=== PATIENT | female | born 1970 | race Caucasian/White ===

== ENCOUNTER 2017-02-20 21:55 | Emergency (ER) | payer BC ==
[~2017-02-20] VITALS: Ht 165.1 cm; Wt 65.8 kg
[~2017-02-20 21:55] MED LIST: ACEBUTCAFT PO; AMOX500 PO; Ambien5 MG PO; BUPR100; BUPR150T2; BUPR150T2 PO; CHLORHEXIDINE; CLON1; CODACE30 PO; Cyclobenzaprine5 MG PO; DESI10; DESI50; DESV50 PO; DHE; DHEA PO; DOCU100 PO; ESTR2 PO; FROV2.5; HYDACE5 PO; HYDMOR2 PO; HYDR1TAB94 PO; IBUP800 PO; KETO10; KETO30I; KETO30I IM; LEVFLO500; LEVFLO500 PO; LEVSOD88 PO; LITH300C; Lasix20 MG PO; MAGCIT300 PO; MEDR10 PO; METR500 PO; MINO50; MULVITA; NAPR250 PO; NAPR550 PO; Norco 5-325 Ta1 EACH PO; ONDA4; ONDA4ODT MM; ONDA8 PO; ONDA8ODT MM; OXYACE5T; OXYACE5T PO; OXYC5 PO; PHENERGAN; PRED20 PO; PREG50 PO; PROC25S PR; PROM25; PROM25 PO; PROM50S PR; QUDEXY XR200 MG PO; QUET300; RXLORA1 PO; RXOXYACE PO; SUMA25; TIZA4; TOPI100; TOPI25; TOPI50 PO; TORADOL; TRAM50; VIIBRYD40 MG PO; Zofran8 MG PO; [UNRECOGNIZED DRUG - OTHER]; [UNRECOGNIZED DRUG - OTHER]
[2017-02-20] MEDS ORDERED: OSEL75CA PO (23:46)
[2017-02-21 03:43] LABS: Alanine Aminotransfer (ALT/SGP 20 U/L (12-78); Alk Phos 51 U/L (50-136); Anion Gap 6 mmol/L (6-16); Aspartate Aminotrans (AST/SGOT 14 U/L (12-37); Bilirubin, Total 0.3 mg/dL (0.1-1.0); Blood Urea Nitrogen 19 mg/dL (8-24); CO2, Blood 22 mmol/L (21-32); Calcium, Blood 8.1 mg/dL (8.5-10.1); Chloride, Blood 116 mmol/L (98-108); Creatinine, Blood 0.86 mg/dL (0.40-1.00); Glomerular Filtration Rate >60 (60-); Glucose, Blood 89 mg/dL (70-99); Sodium, Blood 144 mmol/L (136-145)
[2017-02-21] MEDS ORDERED: Zofran Odt4 MG PO (04:13)
[2017-02-21 04:14] LABS: Source, Urine Clean Catch
[2017-02-21 04:15] LABS: Bilirubin, Urine Neg (Neg); Blood, Urine Neg (Neg); Glucose Qualitative, Urine Neg (Neg); Ketones, Urine Neg (Neg); Leukocyte Esterase, Urine Neg (Neg); Nitrite, Urine Neg (Neg); Protein, Urine Neg (Neg); Specific Gravity, Urine 1.025 (1.003-1.022); Urobilinogen, Urine NORM (Normal)
[2017-02-21 04:18] LABS: Appearance, Urine Clear (Clear); Color, Urine Yellow (P-Yellow)
== END 2017-02-21 04:54 | disposition home or self-care (01) ==
LOC: ER 21:55
PROVIDERS: Emergency Medicine
DX: J11.1 Influenza due to unidentified influenza virus with other respiratory manifestations (principal); E86.0 Dehydration; E03.9 Hypothyroidism, unspecified; Z88.1 Allergy status to other antibiotic agents; Z88.5 Allergy status to narcotic agent; Z88.7 Allergy status to serum and vaccine; Z79.899 Other long term (current) drug therapy; Z90.710 Acquired absence of both cervix and uterus; Z90.89 Acquired absence of other organs
CPT/HCPCS: 71046; 80053; 81003; 96361; 96374; 96375; 99284; J2405; J2550; J7030

== ENCOUNTER 2017-04-19 18:04 | Emergency (ER) | payer BC ==
[~2017-04-19] VITALS: Ht 165.1 cm; Wt 65.8 kg
[~2017-04-19 18:04] MED LIST changes: +OSEL75CA PO; +Zofran Odt4 MG PO
[2017-04-19] MEDS ORDERED: BUPR150ER PO (19:09)
[2017-04-19 19:50] LABS: BASOPHILS ABSOLUTE AUTO 0.04 K/mm3 (0.00-0.23); BASOPHILS PERCENT AUTO 1 % (0-2); EOSINOPHILS PERCENT AUTO 2 % (0-6); Hematocrit 38.4 % (33.0-51.0); Hemoglobin 12.6 g/dL (11.5-16.0); IMMATURE GRAN ABSOLUTE AUTO 0.01 K/mm3 (0.00-0.10); IMMATURE GRAN PERCENT AUTO 0 % (0-1); LYMPHOCYTES ABSOLUTE AUTO 1.92 K/mm3 (0.84-5.20); LYMPHOCYTES PERCENT AUTO 42 % (21-46); MONOCYTES ABSOLUTE AUTO 0.49 K/mm3 (0.16-1.47); MONOCYTES PERCENT AUTO 11 % (4-13); Mean Corpuscular HGB 29.4 pg (26.0-34.0); Mean Corpuscular HGB Conc 32.8 g/dL (31.5-36.5); Mean Corpuscular Volume 90 fL (80-100); Mean Platelet Volume 9.9 fL (9.1-12.4); NEUTROPHILS ABSOLUTE AUTO 2.06 K/mm3 (1.96-9.15); NEUTROPHILS PERCENT AUTO 45 % (41-73); Platelet Count 273 K/mm3 (150-400); RDW Coefficient Variation 12.3 % (11.7-14.2); RDW Standard Deviation 39.8 fL (35.1-46.3); Red Blood Cell Count 4.29 M/mm3 (3.80-5.20); White Blood Cell Count 4.62 K/mm3 (4.00-11.30)
[2017-04-19 20:12] LABS: Alanine Aminotransfer (ALT/SGP 22 U/L (12-78); Albumin, Blood 3.9 g/dL (3.4-5.0); Albumin/Globulin Ratio 1.3 (0.8-1.8); Alk Phos 47 U/L (50-136); Anion Gap 6 mmol/L (6-16); Aspartate Aminotrans (AST/SGOT 24 U/L (12-37); Bilirubin, Total 0.2 mg/dL (0.1-1.0); Blood Urea Nitrogen 18 mg/dL (8-24); Bun/Creatinine Ratio 20.3 (12.0-20.0); CO2, Blood 26 mmol/L (21-32); CPK Creatine Kinase 149 U/L (26-193); Calcium, Blood 8.7 mg/dL (8.5-10.1); Chloride, Blood 110 mmol/L (98-108); Creatine Kinase MB 2.1 ng/mL (0.0-3.6); Creatine Kinase MB Index 1.4 (0.0-4.0); Creatinine, Blood 0.89 mg/dL (0.40-1.00); Globulin, Blood 3.1 g/dL (2.2-4.0); Glomerular Filtration Rate >60 (60-); Glucose, Blood 88 mg/dL (70-99); Magnesium, Blood 2.3 mg/dL (1.6-2.4); Phosphorus, Blood 2.2 mg/dL (2.5-4.9); Potassium, Blood 3.6 mmol/L (3.5-5.5); Sodium, Blood 142 mmol/L (136-145)
== END 2017-04-19 23:32 | disposition home or self-care (01) ==
LOC: ER 18:04
PROVIDERS: Emergency Medicine
DX: F41.9 Anxiety disorder, unspecified (principal); F45.0 Somatization disorder; G43.909 Migraine, unspecified, not intractable, without status migrainosus; Z88.5 Allergy status to narcotic agent; Z88.7 Allergy status to serum and vaccine; Z79.899 Other long term (current) drug therapy
CPT/HCPCS: 80053; 82550; 82553; 83735; 84100; 85025; 93005; 93010; 96374; 96375; 99283; J1885; J2060

== ENCOUNTER → 2017-06-01 | Outpatient (CLI) | payer BC ==
[~2017-06-01] MED LIST changes: +BUPR150ER PO
[2017-06-03 19:00] LABS: HCV Non Reactive (NR)
== END ==
LOC: LAB EV 18:52 → LAB SHORT 18:52
PROVIDERS: Physician Assistant Medical
DX: N30.00 Acute cystitis without hematuria (principal); Z72.51 High risk heterosexual behavior
CPT/HCPCS: 80074; 86592; 87070; 87077; 87086; 87186; 87205; 87389

== ENCOUNTER 2019-01-05 13:49 | Day surgery (SDC) | payer BC ==
[~2019-01-05] VITALS: Ht 165.1 cm; Wt 64.2 kg
[~2019-01-05 13:49] MED LIST changes: +ALLEGRA ALLERG180 MG PO; +BACL10 PO; +DEXA4 PO; +HYDMOR4 PO; +Imitrex6 MG/0.52 SC; +KETOROLAC30 MG/1 ML IM; +TOPI100 PO
--- NOTE | 2019-01-05 14:43 | NUR ---
01/05/19 1443 Yaneth Harris 1440 77, 100%, 116/65
== END 2019-01-05 15:05 | disposition home or self-care (01) ==
LOC: ORSCSDS 13:49
PROVIDERS: Anesthesiology
PROC: 3E0R33Z Introduction of Anti-inflammatory into Spinal Canal, Percutaneous Approach (ICD-10-PCS; principal; 2019-01-05 15:45)
DX: M54.12 Radiculopathy, cervical region (principal); Z79.899 Other long term (current) drug therapy
CPT/HCPCS: J1040; J2250; J3010

== ENCOUNTER 2019-03-25 08:00 | Day surgery (SDC) | payer BC, OTHER ==
[~2019-03-25] VITALS: Ht 165.1 cm; Wt 62.4 kg
== END 2019-03-25 09:32 | disposition home or self-care (01) ==
LOC: ORSCSDS 08:00
PROVIDERS: Anesthesiology
PROC: 3E0S3GC Introduction of Other Therapeutic Substance into Epidural Space, Percutaneous Approach (ICD-10-PCS; principal; 2019-03-25 08:45)
DX: G97.1 Other reaction to spinal and lumbar puncture (principal); Z79.899 Other long term (current) drug therapy
CPT/HCPCS: J1040; J2250; J2405; J3010; J7120

== ENCOUNTER 2019-03-28 13:54 | Day surgery (SDC) | payer BC, OTHER ==
--- NOTE | 2019-03-28 14:16 | NUR ---
PT BROUGHT BACK FROM WAITING AREA. PT IS ALERT AND ORIENTED ON ADMISSION. DENIES AND NUMBNESS OR TINGLING IN EXTREMEITES. NUMBER ONE C/O IS 9/10 HEADACHE. TOOK NORCO AND REGLAN AT NOON TODAY.
--- NOTE | 2019-03-28 16:52 | NUR ---
Patient up to Ambulate independently. Gait steady. Discharge instructions reviewed with patient. Patient verbalizes understanding. Copy given to patient to take home.
== END 2019-03-28 23:09 | disposition home or self-care (01) ==
LOC: ORD 13:54 → ORSCMMR 13:54 → ORD 23:09
PROVIDERS: Anesthesiology
PROC: 3E0S3GC Introduction of Other Therapeutic Substance into Epidural Space, Percutaneous Approach (ICD-10-PCS; principal; 2019-03-28 14:00)
DX: G97.1 Other reaction to spinal and lumbar puncture (principal); Z79.899 Other long term (current) drug therapy
CPT/HCPCS: J2250; J3010; J7120

== ENCOUNTER 2019-10-21 12:50 | Inpatient (IN) | payer BC, OTHER ==
[~2019-10-21] VITALS: Ht 165.1 cm; Wt 61.2 kg
[~2019-10-21 12:50] MED LIST changes: +PROG100; +T-3
--- NOTE | 2019-10-21 13:50 | NUR ---
10/21/19 1350 GIANCARLO SIMS PATIENT IS DIFFICULT IV START. ELIZABET RAY , ELIZABET MONDRAGON AND LUCAS SHARIF WITH MULTIPLE ATTEMPTS ON BOTH ARMS AND RIGHT FOOT PROVED UNSUCCESSFUL. tOTAL OF AT LEAST 6 ATTEMPTS WERE MADE PRIOR TO CONSULTING DR. APODACA.
--- NOTE | 2019-10-21 15:43 | NUR ---
10/21/19 1543 Candy Verma 2 1/2 CC OF PT'S AUTOLOGOUS BLOOD VIA EPIDURAL BY DR APODACA.
--- NOTE | 2019-10-21 17:50 | NUR ---
10/21/19 1750 Shasha Hernandez ASSUMED CARE OF PATIENT APPROX 1645. PT RESTING WITH EMESIS BOWL BESIDE HER, LIGHTS DIMMED. PT STS PAIN 10/[address] APODACA HAS DECIDED TO HAVE PT ADMITTED TO [facility]. NURSING PLATE COLORER CONTACTED. AWAITING CALL FROM HOSPITALIST FOR ORDERS. PT REQUESTS FAMILY TO BE CONTACTED. SIGNIFICANT OTHER CALLED BY THIS RN, UPDATED WITH SITUATION. S.O. TO ORSC, SITTING WITH PATIENT. PT DENIES NEEDS AT THIS TIME.
--- NOTE | 2019-10-22 04:10 | NUR ---
CALL PLACED TO HOSPITALIST REGARDING LOW BP AND HR. PT ASYMPTOMATIC AT THIS TIME. FLUIDS INFUSING AT 150CC. WILL WAIT FOR CALL BACK.
--- NOTE | 2019-10-22 04:31 | NUR ---
SHIFT SUMMARY: PT ARRIVED TO UNIT LAST NIGHT AT APPROX 2020 S/P ATTEMPTED BLOOD PATCH. BANDAID TO BACK C/D/I WITHOUT SIGNS OF BLEEDING. HEADACHE BEING MANAGED WITH LIQ OXY AND TORADOL PER EMAR. MEDICATED WITH COMPAZINE AND ZOFRAN FOR COMPLAINTS OF NAUSEA. NO EMESIS. PT OUT OF BED ONCE TO BATHROOM. VOID X1 OF 200CC. URINE DARK YELLOW. NEW POWERGLIDE PLACED TO DANIEL. FLUIDS INFUSING AT 150CC/HR. BRANDON SMALL AMOUNT OF WATER.
--- NOTE | 2019-10-22 04:43 | NUR ---
ATTEMPTED TO CALL HOSPITALIST AT THIS TIME. WAITING FOR CALL BACK.
--- NOTE | 2019-10-22 05:12 | NUR ---
NEW ORDER FOR 500CC BOLUS OF NS.
[2019-10-22 05:45] LABS: BASOPHILS ABSOLUTE AUTO 0.03 K/mm3 (0.00-0.23); BASOPHILS PERCENT AUTO 1 % (0-2); EOSINOPHILS ABSOLUTE AUTO 0.15 K/mm3 (0.00-0.68); EOSINOPHILS PERCENT AUTO 3 % (0-6); Hemoglobin 12.9 g/dL (11.5-16.0); IMMATURE GRAN ABSOLUTE AUTO 0.02 K/mm3 (0.00-0.10); IMMATURE GRAN PERCENT AUTO 0 % (0-1); LYMPHOCYTES ABSOLUTE AUTO 1.82 K/mm3 (0.84-5.20); LYMPHOCYTES PERCENT AUTO 34 % (21-46); MONOCYTES ABSOLUTE AUTO 0.42 K/mm3 (0.16-1.47); MONOCYTES PERCENT AUTO 8 % (4-13); Mean Corpuscular HGB 30.3 pg (26.0-34.0); Mean Corpuscular HGB Conc 32.3 g/dL (31.5-36.5); Mean Corpuscular Volume 94 fL (80-100); Mean Platelet Volume 9.5 fL (9.1-12.4); NEUTROPHILS ABSOLUTE AUTO 2.96 K/mm3 (1.96-9.15); NEUTROPHILS PERCENT AUTO 55 % (41-73); Platelet Count 293 K/mm3 (150-400); RDW Coefficient Variation 11.3 % (11.7-14.2); RDW Standard Deviation 38.6 fL (35.1-46.3); Red Blood Cell Count 4.26 M/mm3 (3.80-5.20)
[2019-10-22 06:03] LABS: Bun/Creatinine Ratio 15.2 (12.0-20.0); Calcium, Blood 8.3 mg/dL (8.5-10.1); Creatinine, Blood 1.05 mg/dL (0.40-1.00)
--- NOTE | 2019-10-22 08:31 | NUR ---
SPOKE WITH DR. NAVA AT THIS TIME CONCERNING PT'S HYPOTENSION. NO NEW ORDERS. WILL CTM PT STATUS.
--- NOTE | 2019-10-22 11:31 | NUR ---
10/22/19 1131 Quiana Shrestha BLOOD PATCH DONE WITH POWER GLIDE AT PATIENT BEDSIDE WITH DR. MARINO. NO SEDATION. PT TOLERATED WELL
--- NOTE | 2019-10-22 13:51 | NUR ---
PT UNDERWENT BLOOD PATCH PROCEDURE AT ABOUT [address] MARINO AT PT BEDSIDE
--- NOTE | 2019-10-22 18:25 | NUR ---
SUMMARY: NO ACUTE CHANGE TODAY. PT TOLERATED BLOOD PATCH PROCEEDURE WELL. VSS. SITE WNL, NO LEAKING NOTED, PT DENIES DIZZINESS. PT CONTINUES TO REPORT CONSTANT HEADACHE AT REST. PAIN IS GREATER WHEN SITTING UP, MOVING TOO MUCH OR AMBULATING. PT LAID FLAT FOR MEALS AND WHEN NOT UP TO USE BATHROOM. SPOKE WITH DR. MARINO AT THIS TIME PT'S HEADACHE SEEMS TO HAVE STAYED THE SAME FOLLOWING BLOOD PATCH. NO NEW ORDERS. PLAN IS TO MANAGE PAIN AND ALLOW PT TO REST. WILL REPORT TO NOC RN
--- NOTE | 2019-10-23 03:24 | NUR ---
PT AWOKE W/BLOODY NOSE. PT APPLIED PRESSURE, WAS ABLE TO STOP BLEEDING. PT CONT TO C/O HEADACHE 09/25. PT REQ IV PAIN AND NAUSEA MEDS. PT REMOVED SCOPOLAMINE PATCH. HUMIDIFIED AIR PROVIDED VIA VA.
--- NOTE | 2019-10-23 06:29 | NUR ---
PT CONT TO C/O SEVERE HEADACHES. PT RATES PAIN 8/10 AFTER ACTIVITY, 4/10 AT REST. PT REQUIRING BOTH IV AND PO PAIN MEDS, ICE PACKS PROVIDED W/LITTLE RELIEF. NO DRNG NOTED FROM LUMBAR SITE, SMALL CLOT VISIBILE. PT HAD 1 EPISODE OF NAUSEA, NO EMESIS. PT WOKE W/NOSEBLEED, WAS ABLE TO STOP BLEED W/PRESSURE. PT REP LESS IRRITATION W/HUMIDIFIED AIR. BP REMAINED HYPO, PT DENIED DIZZINESS WHEN UP. IVF CONT PER ORDERS. IS VOIDING CLEAR YELLOW URINE.
--- NOTE | 2019-10-23 15:10 | NUR ---
SUMMARY: NO ACUTE CHANGE TODAY. PT CONTINUES TO HAVE SPINAL HEADACHE. REPORTS AFTER GIVEN COMPAZINE AND DILAUDID ABLE TO SLEEP AND PAIN DECREASED TO 3/10. PT REPORTS PAIN STILL INCREASES TO 8/10 WITH MUCH MOVEMENT OR STANDING. VSS,A/O. PLAN IS TO DC HOME TOMORROW, THIS DICISION MADE WITH DR. NAVA. WILL PASS REPORT TO NOC RN
--- NOTE | 2019-10-24 04:29 | NUR ---
SHIFT SUMMARY LYING IN LOW FOWLERS, HAS RESTED WELL. RIGHT UPPER ARM POWERGLIDE IS PATENT, FLUSHING WITH EASE WHILE INFUSING LR AT 75ML/HR. DENIES PAIN, DISCOMFORT, OR FURTHER NEEDS AT THIS TIME. WAS MEDICATED FOR PAIN AND N/V X1 AFTER AMBULATING TO BATHROOM, TOLERATED WELL. SAFETY MEAURES IN PLACE. WILL CONTINUE TO MONITOR AND GIVE HAND OFF TO ONCOMING SHIFT USING SBAR.
--- NOTE | 2019-10-24 16:38 | NUR ---
SHIFT SUMMARY PT A&OX4, VSS, RA, BEDREST/LYING FLAT, AMBULATES INDEPENDENT TO BRP, DENIES DIZZINESS, VOIDING WELL. PAIN MANAGED WITH IV DILAUDID PRN, AND SCHEDULED TORADOL. NAUSEA MANAGED WITH IV SCHEDULED REGLAN, COMPAZINE AND ZOFRAN PRN; DENIES VOMITING. BRANDON LOW PO INTAKE. POWERGLIDE DANIEL; IVF 75 MLS/HR. WILL REPORT TO ONCOMING NOC RN.
--- NOTE | 2019-10-25 06:10 | NUR ---
SHIFT SUMMARY: ZEENAT IS A&OX4. SHE REPORTS THAT HER BLOOD PRESSURE RUNS IN THE LOW RANGE AT HER BASELINE. BP TAKEN BEFORE AND AFTER ADMINISTRATION OF DILAUDID STABLE. SHE DENIES ANY DIZZINESS, LIGHTHEADEDNESS, OR PRE-SYNCOPAL SYMPTOMS. SHE REPORTS THAT 1 MG OF DILAUDID HAS BEEN HELPING TO KEEP HER PAIN UNDER CONTROL. SHE STATES THAT STANDING AND WALKING INCREASE THE PAIN FROM THE HEADACHE AND THE NAUSEA. SHE REPORTS PASSING A SIGNIFICANT AMOUNT OF GAS AND SEVERAL BOWEL MOVEMENTS DURING THE NIGHT. SHE USES HER CALL LIGHT APPROPRIATELY. SHE IS INDEPENDENT TO THE BATHROOM. SHE IS LYING IN BED WITH HER CALL LIGHT IN REACH. WILL REPORT TO DAY SHIFT RN.
--- NOTE | 2019-10-25 18:42 | NUR ---
SHIFT SUMMARY PT A&OX4, VSS, LYING FLAT, INDEPENDENT TO BRP, VOIDING WELL, BRANDON PO - INTAKE HAS IMPROVED. PAIN MANAGED WITH 1 MG DILAUDID & TORADOL. NAUSEA TX'D WITH 5 MG REGLAN AND ZOFRAN PRN, DENIES VOMITING. POWERGLIDE DANIEL, IVF @ 75 MLS/HR. WILL REPORT TO ONCOMING NOC RN.
--- NOTE | 2019-10-26 04:43 | NUR ---
SHIFT SUMMARY: NO SIGNIFICANT CHANGES THIS SHIFT. PT A&OP X4. VS WNL. PT CONTINUES TO HAVE A HEADACHE. PAIN BEING MANAGED WITH 1MG DILAUDID AND TORADOL PER EMAR. NAUSEATED ONCE THIS SHIFT AND GIVEN SCHEDULED REGLAN. NO EMESIS. LYING SUPINE MOST OF SHIFT. AMBULATING TO BATHROOM INDEPENDENTLY AND VOIDING WELL. IVF INFUSING AT 75 PER ORDERS. PLAN FOR ADDITIONAL LABS AND PAIN MANAGEMENT.
[2019-10-26] MEDS ORDERED: FIORINAL 50-321 EACH PO (13:58)
[2019-10-26] MEDS ORDERED: DOCU100 PO (13:58)
[2019-10-26] MEDS ORDERED: LIOT5 PO (13:59)
[2019-10-26] MEDS ORDERED: ONDA4ODT MM (14:00)
[2019-10-26] MEDS ORDERED: SENN187 PO (14:00)
[2019-10-26] MEDS ORDERED: HYDMOR2 PO (14:02)
[2019-10-26] MEDS ORDERED: METO10 PO (14:04)
== END 2019-10-26 15:15 | disposition home or self-care (01) | DRG 103 ==
LOC: ORSCSDS 12:50 → SURS 19:30 → MEDS 19:30 → ORSCSDS 19:30 → SURS 20:15
PROVIDERS: Anesthesiology; Nurse Practitioner Acute Care; ADMIT Internal Medicine
PROC: 3E0R3GC Introduction of Other Therapeutic Substance into Spinal Canal, Percutaneous Approach (ICD-10-PCS; principal; 2019-10-22 11:00)
DX: G97.1 Other reaction to spinal and lumbar puncture (principal); I95.0 Idiopathic hypotension; E03.9 Hypothyroidism, unspecified; M54.12 Radiculopathy, cervical region; F32.9 Major depressive disorder, single episode, unspecified
CPT/HCPCS: 71046; 80048; 85025; 85651; 96361; 96375; 96376; A9270; C1751; G0378; J0780; J1170; J1885; J2001; J2405; J2765; J2930; J7040; J7120

== ENCOUNTER 2021-05-01 13:14 | Day surgery (SDC) | payer BC ==
[~2021-05-01] VITALS: Ht 165.1 cm; Wt 68.1 kg
[~2021-05-01 13:14] MED LIST changes: +FIORINAL 50-321 EACH PO; +LIOT5 PO; +METO10 PO; -PROG100; +PROG100 PO; +SENN187 PO
[2021-05-01] MEDS ORDERED: LEVSOD100 PO (13:34)
--- NOTE | 2021-05-01 13:52 | NUR ---
05/01/21 1352 Noemí Shields NEGATIVE
--- NOTE | 2021-05-01 14:51 | NUR ---
05/01/21 1451 Mk Lou [address]MC[address]'S ISOVUE 200M INJ INTO OPSITE AT [address] MARINO.
== END 2021-05-01 15:23 | disposition home or self-care (01) ==
LOC: ORSCSDS 13:14
PROVIDERS: Anesthesiology
PROC: 3E0R33Z Introduction of Anti-inflammatory into Spinal Canal, Percutaneous Approach (ICD-10-PCS; principal; 2021-05-01 15:00)
DX: M50.121 Cervical disc disorder at C4-C5 level with radiculopathy (principal); M79.18 Myalgia, other site; K21.9 Gastro-esophageal reflux disease without esophagitis; R11.0 Nausea; Z79.899 Other long term (current) drug therapy
CPT/HCPCS: J1040; J2250; J3010

== ENCOUNTER 2021-10-25 07:44 | Day surgery (SDC) | payer OTHER, BC ==
[~2021-10-25] VITALS: Ht 165.1 cm; Wt 68.6 kg
[~2021-10-25 07:44] MED LIST changes: +LEVSOD100 PO
[2021-10-25] MEDS ORDERED: ALDACTONE100 MG PO (08:35)
[2021-10-25] MEDS ORDERED: DOXY100 PO (08:36)
[2021-10-25] MEDS ORDERED: MELO7.5 PO (08:38)
--- NOTE | 2021-10-25 09:38 | NUR ---
10/25/21 0938 Jasbir Nur MIDAZOLAM AND FENTENAYL GIVEN PER DR. MARINO INSTRUCTIONS.
== END 2021-10-25 10:05 | disposition home or self-care (01) ==
LOC: ORSCSDS 07:44
PROVIDERS: Anesthesiology
PROC: 3E0R33Z Introduction of Anti-inflammatory into Spinal Canal, Percutaneous Approach (ICD-10-PCS; principal; 2021-10-25 09:15)
DX: M96.1 Postlaminectomy syndrome, not elsewhere classified (principal); M54.12 Radiculopathy, cervical region; E03.9 Hypothyroidism, unspecified; K21.9 Gastro-esophageal reflux disease without esophagitis; Z79.899 Other long term (current) drug therapy
CPT/HCPCS: J1040; J2250; J3010; J7120

== ENCOUNTER 2022-07-15 11:49 | Day surgery (SDC) | payer OTHER, BC ==
[~2022-07-15] VITALS: Ht 165.1 cm; Wt 68.7 kg
[~2022-07-15 11:49] MED LIST changes: +ALDACTONE100 MG PO; +DOXY100 PO; +MELO7.5 PO
[2022-07-15] MEDS ORDERED: PREGABALIN50 MG PO (12:08)
--- NOTE | 2022-07-15 12:58 | NUR ---
07/15/22 1258 Paula Talbot 75MCG OF FENTANYL AND 3 OF VERSED WAS GIVEN TO PT WHILE VITALS WERE BEING MONITORED PER DR. MARINO ORDERS. PT WAS IN A CHAIR AT FOOT OF BED WITH FOREHEAD RESTING ON PILLOWS.
[2022-07-15 13:07] VITALS: BP 94/65
--- NOTE | 2022-07-15 13:23 | NUR ---
07/15/22 1323 MAO SINGH IV OUT AT 1324, SITE WNL, CANULA INTACT. PT TOLERATED PROCEDURE WELL.
== END 2022-07-15 13:30 | disposition home or self-care (01) ==
LOC: ORSCSDS 11:49
PROVIDERS: Anesthesiology
PROC: 3E0R3BZ Introduction of Anesthetic Agent into Spinal Canal, Percutaneous Approach (ICD-10-PCS; principal; 2022-07-15 12:30)
PROC: 3E0R33Z Introduction of Anti-inflammatory into Spinal Canal, Percutaneous Approach (ICD-10-PCS; principal; 2022-07-15 12:30)
DX: M54.12 Radiculopathy, cervical region (principal); E03.9 Hypothyroidism, unspecified; K21.9 Gastro-esophageal reflux disease without esophagitis; Z79.899 Other long term (current) drug therapy
CPT/HCPCS: J1040; J1885; J2250; J3010

== ENCOUNTER 2023-12-16 06:36 | Emergency (ER) | payer BC ==
[~2023-12-16] VITALS: Ht 165.1 cm; Wt 63.5 kg
[~2023-12-16 06:36] MED LIST changes: +PREGABALIN50 MG PO
[2023-12-16 07:04] VITALS: BP 125/75
[2023-12-16] MEDS ORDERED: Ketorolac Tromethamine 30mg Vial IV ONE (07:20)
[2023-12-16] MEDS ORDERED: NS 1,000 ML IV SCH (07:20)
[2023-12-16] MEDS ORDERED: Ondansetron HCl 2 MG / ML 2ML Vial IV ONE (07:20)
[2023-12-16 08:07] LABS: BASOPHILS ABSOLUTE AUTO 0.06 K/mm3 (0.00-0.23); BASOPHILS PERCENT AUTO 1 % (0-2); EOSINOPHILS PERCENT AUTO 1 % (0-6); Hematocrit 47.5 % (33.0-51.0); Hemoglobin 15.8 g/dL (11.5-16.0); IMMATURE GRAN ABSOLUTE AUTO 0.03 K/mm3 (0.00-0.10); IMMATURE GRAN PERCENT AUTO 0 % (0-1); LYMPHOCYTES ABSOLUTE AUTO 1.53 K/mm3 (0.84-5.20); LYMPHOCYTES PERCENT AUTO 14 % (21-46); MONOCYTES ABSOLUTE AUTO 0.46 K/mm3 (0.16-1.47); MONOCYTES PERCENT AUTO 4 % (4-13); Mean Corpuscular HGB 30.9 pg (26.0-34.0); Mean Corpuscular HGB Conc 33.3 g/dL (31.5-36.5); Mean Corpuscular Volume 93 fL (80-100); Mean Platelet Volume 9.8 fL (9.1-12.4); NEUTROPHILS ABSOLUTE AUTO 8.87 K/mm3 (1.96-9.15); NEUTROPHILS PERCENT AUTO 80 % (41-73); Platelet Count 362 K/mm3 (150-400); RDW Coefficient Variation 12.1 % (11.7-14.2); RDW Standard Deviation 41.4 fL (35.1-46.3); Red Blood Cell Count 5.11 M/mm3 (3.80-5.20); White Blood Cell Count 11.05 K/mm3 (4.00-11.30)
[2023-12-16 08:31] LABS: Albumin, Blood 4.3 g/dL (3.4-5.0); Albumin/Globulin Ratio 1.2 (0.8-1.8); Bilirubin, Total 0.4 mg/dL (0.1-1.0); Bun/Creatinine Ratio 25.8 (12.0-20.0); Calcium, Blood 9.6 mg/dL (8.5-10.1); Creatinine, Blood 0.89 mg/dL (0.40-1.00); Globulin, Blood 3.6 g/dL (2.2-4.0); Potassium, Blood 4.6 mmol/L (3.5-5.5); Total Protein, Blood 7.9 g/dL (6.4-8.2)
[2023-12-16] MEDS ORDERED: Morphine Sulfate 4 MG/1 ML Injection IV ONE ×2 (09:00→10:15)
[2023-12-16] MEDS ORDERED: ONDA4ODT MM (10:19)
[2023-12-16] MEDS ORDERED: DIPATR PO (10:19)
== END 2023-12-16 10:28 | disposition home or self-care (01) ==
LOC: ER 06:36
PROVIDERS: Emergency Medicine
DX: K52.9 Noninfective gastroenteritis and colitis, unspecified (principal); E03.9 Hypothyroidism, unspecified; Z88.1 Allergy status to other antibiotic agents; Z88.5 Allergy status to narcotic agent; Z88.7 Allergy status to serum and vaccine; Z79.899 Other long term (current) drug therapy; Z79.890 Hormone replacement therapy
CPT/HCPCS: 74177; 80053; 83690; 85025; 96374-59; 96375; 96376; 99284-25; J1885; J2270; J2405; J7030; Q9967